=== PATIENT | male | born 1985 | race Caucasian/White ===

== ENCOUNTER 2024-07-09 15:08 | Emergency (ER) | payer BC, SELFPAY ==
[2024-07-09] VITALS (21 sets, daily range): BP systolic 131–170; BP diastolic 71–93; PULSE 53–104; RESP 10–22; TEMP 36.3–36.8; O2SAT 98–100
--- NOTE | 2024-07-09 15:00 | RT.EKG_ITS ---
APPROVED REPORT Exam: Resting ECG Reason for Exam: Palpitations Patient Location: E HR:79 bpm ECG Measurements Heart Rate 79 AXIS LA 149 P 70 QRSd 92 QRS 78 QT 356 T 14 QTc 408 Conclusion Sinus rhythm, rate 79 No interval abnormalities, no ectopy No STEMI Concave ST segment II, III, aVF likely benign early repol
--- NOTE | 2024-07-09 15:25 | ED.GENADUL_ITS ---
Discharge Plan Disposition Patient Disposition: Home Condition: Stable Discharge Details Clinical Impression: Palpitations Primary Care Provider: Unknown,Unknown ED Provider: Carlos Bose Home Meds and New Rx's Prescriptions: No Action No Known Home Meds Discharge Instructions Instructions: Palpitations ED Additional Instructions: You were seen in the emergency department for your palpitations, your cardiac workup is negative, there is no blood clot in your lungs, no pneumonia or other abnormality on chest x-ray except for a possible subacute L 5th rib old fracture- you should repeat imaging on this when you obtain your new PCP, your labs show no signs of severe infection or electrolyte disturbance that could be affecting her heart rhythm. I recommend that you follow-up with an outpatient cardiology visit at some point the next 3 months for possible treadmill EKG and echocardiogram and possible wearable heart monitor. Please return to the emergency department for any increasing sensations in her chest especially with pain, dizziness, sweating, shortness of breath. HPI General Date/Time Provider Initiated Documentation: 07/09/24 15:16 . HPI Narrative: 39 year-old male presents to ED today by POV/ambulating with a chief complaint of whooshing sensation in his chest, states he feels a whooshing sensation about every third beat ongoing since Tuesday, couple days ago he did feel it in his left lower back as well. Quality described as just a whooshing sensation without chest pain, denies dizziness, denies shortness of breath, denies diaphoresis, no radiation to fever, near syncope, nausea or vomiting, abdominal pain, headache or visual changes. Severity is described as mild. Palliating factors include nothing specific attempted. Provoking factors include nothing specific, states he feels it more when he is laying down at night. Events leading up to the incident/Associated Symptoms: Patient denies any cardiac history, denies family history of cardiac disease, endorses that he had a virus last month that caused him a lot of pain with coughing that seem to get better but the whooshing sensation started after he fully recovered from this, endorses that he works out heavily sometimes but has been taking it easy while he heals from his respiratory infection. Patient not anticoagulated. Related Data Home Medications ?Medication ?Instructions ?Recorded ?Confirmed Unknown [No Known Home Meds] 07/09/24 07/09/24 Allergies Allergy/AdvReac Type Severity Reaction Status Date / Time amoxicillin AdvReac Unknown Unknown Verified 07/09/24 15:16 General Stated Complaint: Palpitatns DENISE: 3 Review of Systems All systems reviewed & are unremarkable except as noted in HPI and below Exam Narrative Exam Narrative: GENERAL APPEARANCE: Well-nourished, non-toxic, awake and alert, atraumatic, no acute distress. SKIN: Warm, pink, dry, intact, without rashes/lesions/ulcerations. HEAD: Normocephalic, atraumatic, normal hair distribution for gender/age. EYES: Normal conjunctiva, no exudates on lids/lashes. ENT: Nares patent, no circumoral cyanosis, no facial swelling NECK: Supple, trachea midline, painless cervical ROM, no carotid bruit. LUNGS/CHEST: Lungs CTA bilaterally- no rhonchi/rales/wheezes diffusely, non- labored respirations, normal A/P diameter, symmetrical expansion, no chest wall deformity HEART (CV/PV): Regular rate and rhythm without murmur, no peripheral edema, no JVD. ABDOMEN: Soft, non-distended, no guarding, no abdominal bruit. MSK: Normal ROM, no swelling/deformity to bilateral UEs or LEs, moving all extremities without weakness, no cyanosis, spine midline without tenderness, normal curvature. NEURO: Mental Status AAOx4 - alert to person, place, time, events No facial droop, no forehead involvement. Motor: No focal weakness - strength 5/5 in bilateral UEs and LEs, proximal and distal, symmetric. Sensory: sensation intact to light touch globally. Gait normal: patient ambulated without ataxia into ED room. PSYCH: euthymic, cooperative, pleasant, appropriate speech Course Vital Signs Vital signs: Vital Signs Temperature 36.3 C L 07/09/24 15:10 Pulse 104 H 07/09/24 15:10 Respiratory Rate 15 07/09/24 15:10 Blood Pressure 158/93 H 07/09/24 15:10 Pulse Oximetry 98 07/09/24 15:10 Temperature 36.3 C L 07/09/24 15:10 Pulse 104 H 07/09/24 15:10 Respiratory Rate 15 07/09/24 15:10 Respiratory Effort Normal 07/09/24 15:13 Blood Pressure 158/93 H 07/09/24 15:10 Blood Pressure Position Sitting 07/09/24 15:10 Pulse Oximetry 98 07/09/24 15:10 Oxygen Delivery Method Room Air 07/09/24 15:10 Oxygen Flow Rate 0 07/09/24 15:10 Medical Decision Making This dictation utilizes [id number] dictation software and may contain unedited grammatical errors. 39 year-old male presents to ED today by POV/ambulating with a chief complaint of whooshing sensation in his chest, states he feels a whooshing sensation about every third beat ongoing since Tuesday, couple days ago he did feel it in his left lower back as well. Quality described as just a whooshing sensation without chest pain, denies dizziness, denies shortness of breath, denies diaphoresis, no radiation to fever, near syncope, nausea or vomiting, abdominal pain, headache or visual changes. Severity is described as mild. Palliating factors include nothing specific attempted. Provoking factors include nothing specific, states he feels it more when he is laying down at night. Events leading up to the incident/Associated Symptoms: Patient denies any cardiac history, denies family history of cardiac disease, endorses that he had a virus last month that caused him a lot of pain with coughing that seem to get better but the whooshing sensation started after he fully recovered from this, endorses that he works out heavily sometimes but has been taking it easy while he heals from his respiratory infection. Patients' medical history: Negative, denies any known medical history, takes no medications. Family and social history: Exercises regularly at [employer], denies smoking, denies significant EtOH use or illicit drug use. Pertinent exam findings / vital signs include benign cardiac exam with no murmur, no carotid bruits, hemodynamically stable with a benign abdomen and nontoxic presentation, lungs CTA. Differential / pathologies of concern include palpitations, anxiety, arrhythmia, unlikely aortic pathology, myocarditis. Diagnostic studies of: -CBC, CMP, serial troponins, lipase, magnesium, tick & Lyme panel, TSH, D-dimer, EKG, CXR. -CBC shows a mild leukocytosis, nonspecific -Serial troponins negative -D-dimer negative do not suspect PE or aortic pathology -Lipase within normal limits -TSH within normal limits -CMP shows no electrolyte abnormalities, magnesium within normal limits -Tick and Lyme panel pending -Chest x-ray shows subacute L 5th rib fracture, cannot recall time of injury -EKG shows normal sinus rhythm with P waves followed by narrow complex QRS with normal axis, good R wave progression, some early repolarization with normal intervals Interventions of: -None. ED Course/Assessment/Plan: 39-year-old male with no cardiac history presents with some left chest whooshing sensation and left back sensation without pain for quite some time now, states this all started after a viral illness a month ago. His cardiac workup is negative his heart score is low, chest x-ray shows no widened mediastinum, he has no signs of pneumonia, D-dimer is negative, EKG is within normal limits, I do suspect the patient could be having palpitations with possible anxiety exacerbating them with perseveration on the symptoms for quite some time. He is in the process of establishing PCP, he wished to follow-up with cardiology at [facility], recommend he get baseline cardiac studies and possible heart monitor and repeat imaging for his subacute left fifth rib fracture once he establishes primary care, strict return criteria for any further chest pain with shortness of breath or other emergent concerns. Findings not consistent with ACS, PE, PNA, electrolyte abnormality, thyoird disorder, infection. Disposition of Palpitations. Patient verbalized understanding of the plan and return to ED criteria and engaged in shared decision making. Medical Records Medical records reviewed: Yes I reviewed the patient's medical records. Imaging Data Radiologic Study: Attestation: I personally reviewed and interpreted this imaging study as follows: Imaging: X-Ray Radiologist's impression: EXAM: XR CHEST 2V PA LATERAL CLINICAL HISTORY: palpitations. TECHNIQUE: 2D digital imaging was performed. COMPARISON: No exams were available for comparison FINDINGS: 2 views: Heart size is normal. The mediastinum is not widened. Lungs are clear. No infiltrates nor pleural effusions. There is a subacute appearing fracture in the anterolateral aspect of the left 5th rib. No pneumothorax nor lung contusion evident. No other rib fractures identified. IMPRESSION: No acute pulmonary findings. Left 5th rib fracture which appears subacute. Lab Data Lab results reviewed: Yes I reviewed the patient's lab results. Labs: Laboratory Tests Range/Units 07/09/24 07/09/24 15:45 16:35 WBC (4.4-10.8) 10^3/uL 11.12 H RBC (4.36-5.78) 10^6/uL 5.23 Hgb (13.5-17.5) g/dL 16.0 Hct (40.0-50.0) % 46.2 MCV (80-95) fL 88 MCH (27.0-33.0) pg 30.6 MCHC (32.0-36.0) % 34.6 RDW (11.8-14.1) % 11.9 Plt Count (130-400) 10^3/uL 210 MPV (8.0-11.0) fL 9.6 Immature Gran % % 0.3 Neutrophils % % 74.7 Lymphocytes % % 14.9 Monocytes % % 8.4 Eosinophils % % 1.3 Basophils % % 0.4 Nucleated RBC % (0.0-0.3) % 0.0 Absolute Neutrophils (1.2-6.7) 10^3/uL 8.31 H Absolute Lymphocytes (1.2-3.4) 10^3/uL 1.66 Absolute Monocytes (0.1-0.8) 10^3/uL 0.93 H Absolute Eosinophils (0.0-0.7) 10^3/uL 0.14 Absolute Basophils (0.0-0.2) 10^3/uL 0.04 D-Dimer (<500) ng/mlFEU 119 Sodium (136-145) mmol/L 139 Potassium (3.5-5.1) mmol/L 3.4 L Chloride (98-107) mmol/L 102 Carbon Dioxide (21.0-32.0) mmol/L 30.5 Anion Gap (3-11) mmol/L 6.5 BUN (7-18) mg/dL 19 H Creatinine (0.70-1.30) mg/dL 1.1 Est GFR (CKD-EPI 2020) (mL/min/1.73m2) 87.03 Glucose (74-106) mg/dL 121 H Calcium (8.5-10.1) mg/dL 8.9 Magnesium (1.8-2.4) mg/dL 1.9 Total Bilirubin (0.2-1.0) mg/dL 0.52 AST (15-37) U/L 18 ALT (16-63) U/L 25 Alkaline Phosphatase (46-116) U/L 74 Troponin I (<or=76) ng/L 6 5 Total Protein (6.4-8.2) g/dL 8.2 Albumin (3.4-5.0) g/dL 4.2 Lipase (<78) U/L 37 TSH (0.36-3.74) uIU/mL 1.50 Quality:SDOH Health Related Social Needs: No Data to Display PFSH All Active Problems (Updated 07/09/24 @ 17:42 by KAREEN Constantino) Palpitations (Acute) Social History Smoking risk assessment performed?: No Alcohol Intake: never PAWSS Have you Been Recently Intoxicated or Drunk Within the Last 30 days?: No Have you Ever Experienced Previous Episodes of Alcohol Withdrawal?: No Have you ever Experienced Withdrawal Seizures?: No Have you ever Experienced Delirium Tremens(DT)s?: No Have you ever undergone Alcohol Rehabilitation Treatment (i.e, inpt ot outpatient treatment programs)?: No Have you ever Experienced Blackouts?: No Have you ever Combined Alcohol with other Downers within the last 90 days?: No Have you ever Combined Alcohol with any other Substance of Abuse during the last 90 days?: No Positive Blood Alcohol level on Presentation? [PCS.BAL]: No Evidence of Increased Autonomic Activity (i.e. HR>120, tremor, sweating, agitation, nausea)?: No Result: 0
[2024-07-09 15:55] LABS: Abs Immature Grans 0.03 10^3/uL (0.0-0.06); Absolute Basophil Count 0.04 10^3/uL (0.0-0.2); Absolute Eosinophil Count 0.14 10^3/uL (0.0-0.7); Absolute Lymphocyte Count 1.66 10^3/uL (1.2-3.4); Absolute Monocyte Count 0.93 10^3/uL (0.1-0.8); Basophils % 0.4 %; Eosinophils % 1.3 %; HCT 46.2 % (40.0-50.0); Immature Grans % 0.3 %; Lymphocytes % 14.9 %; MCH 30.6 pg (27.0-33.0); MCHC 34.6 % (32.0-36.0); MCV 88 fL (80-95); MPV 9.6 fL (8.0-11.0); Monocytes % 8.4 %; Neutrophils % 74.7 %; Platelet Count 210 10^3/uL (130-400); RBC 5.23 10^6/uL (4.36-5.78); RDW 11.9 % (11.8-14.1); RDW-SD 38.1 fL; WBC 11.12 10^3/uL (4.4-10.8)
[2024-07-09 16:04] LABS: Absolute Neutrophil Count 8.31 10^3/uL (1.2-6.7)
[2024-07-09 16:18] LABS: ALT 25 U/L (16-63); AST 18 U/L (15-37); Albumin 4.2 g/dL (3.4-5.0); Alkaline Phosphatase 74 U/L (46-116); Anion Gap 6.5 mmol/L (3-11); BUN 19 mg/dL (7-18); Bilirubin, Total 0.52 mg/dL (0.2-1.0); CO2 30.5 mmol/L (21.0-32.0); CREATININE 1.1 mg/dL (0.70-1.30); Calcium 8.9 mg/dL (8.5-10.1); Chloride 102 mmol/L (98-107); Estimated GFR 87.03 (mL/min/1.73m2); Glucose 121 mg/dL (74-106); Lipase 37 U/L (<78); Magnesium 1.9 mg/dL (1.8-2.4); Potassium 3.4 mmol/L (3.5-5.1); Sodium 139 mmol/L (136-145); Total Protein 8.2 g/dL (6.4-8.2); Troponin I 6 ng/L (<or=76)
[2024-07-09 16:29] LABS: D-Dimer 119 ng/mlFEU (<500)
[2024-07-09 16:59] LABS: Troponin I 5 ng/L (<or=76)
--- NOTE | 2024-07-09 17:23 | DI.RAD_ITS ---
Exam(s) XR CHEST 2V PA LATERAL EXAM: XR CHEST 2V PA LATERAL CLINICAL HISTORY: palpitations. TECHNIQUE: 2D digital imaging was performed. COMPARISON: No exams were available for comparison FINDINGS: 2 views: Heart size is normal. The mediastinum is not widened. Lungs are clear. No infiltrates nor pleural effusions. There is a subacute appearing fracture in the anterolateral aspect of the left 5th rib. No pneumotho rax nor lung contusion evident. No other rib fractures identified. IMPRESSION: No acute pulmonary findings. Left 5th rib fracture which appears subacute. DATA REPOSITORY: RADIATION DOSE DELIVERED:
[2024-07-11 10:45] LABS: Lyme Ab w Rflx to Lyme Confirm Negative (Negative)
[2024-07-13 09:24] LABS: Anaplasma phagocytophilum Negative (Negative); B. miyamotoi PCR Negative (Negative); Babesia divergens/MO-1 Negative (Negative); Babesia duncani Negative (Negative); Babesia microti Negative (Negative); Ehrlichia chaffeensis Negative (Negative); Ehrlichia ewingii/canis Negative (Negative); Ehrlichia muris eauclairensis Negative (Negative)
== END 2024-07-09 18:03 | disposition home or self-care (01) ==
PROVIDERS: Emergency Provider Physician Assistant
DX: R07.89 Other chest pain (principal); R00.2 Palpitations
CPT/HCPCS: 36415; 80053; 83690; 87798; 93005; 99285; 71046; 83735; 84443; 84484; 85025; 85379; 86618; 93010; 99284